=== PATIENT | female | born 1960 | race Caucasian/White ===

== ENCOUNTER 2016-04-21 08:33 | Observation (INO) | payer OTHER ==
[2016-04-10 13:54] LABS: HEMATOCRIT 38.8 % (36.0-48.0); HEMOGLOBIN 13.3 g/dL (12.0-16.0)
[2016-04-10 14:08] LABS: BUN (BLOOD UREA NITROGEN) 10 MG/DL (6-23); CALCIUM, SERUM 8.9 MG/DL (8.5-10.4); CHLORIDE, SERUM 103 MMOL/L (96-112); CO2 (CARBON DIOXIDE) 30 MMOL/L (24-34); CREATININE 0.63 MG/DL (0.55-1.02); GFR AFRICAN AMERICAN 115 ML/MIN (>=60); GFR NON AFRICAN AMERICAN 100 ML/MIN (>=60); GLUCOSE, SERUM 83 MG/DL (60-99); SODIUM, SERUM 143 MMOL/L (135-148)
--- NOTE | ~2016-04-21 | OP ---
Record Of Operation [facility] [address] [place]. [address] NAME: GORDO MATHIS : 56 STATUS : ADM Alex PAT#: [id number] AGE: 55 ADM/REG DATE : 04/21/16 MR#: [id number] REPORT SERV DATE: 04/21/16 DICTATED BY: RAVINDRA HAINES DATE: 04/21/16 REPORT STATUS : Draft TRANSCRIBED BY: MODMed DATE: 04/21/16 DATE OF PROCEDURE: 04/21/2016 PREOPERATIVE DIAGNOSIS: Cervical radiculopathy, C5-C7 disk disease and stenosis. POSTOPERATIVE DIAGNOSIS: Cervical radiculopathy, C5-C7 disk disease and stenosis. PROCEDURE: Anterior cervical diskectomy and fusion, C5-6, C6-7. Placement of Medtronic PEEK interbody spacer, C5-6, C6-7. Anterior cervical plate from Medtronic, C5-C7. Allograft bone matrix. Neuromonitoring. Operative microscope. SURGEON: Ravindra Haines DO. ANESTHESIA: General. ESTIMATED BLOOD LOSS: 20 mL. COMPLICATIONS: None. INDICATIONS: The patient is a 55-year-old with intractable neck and arm pain, upper extremity weakness, failed conservative treatment. After discussion of risks and benefits, elected to proceed with surgery. DESCRIPTION OF PROCEDURE: I identified the patient in the holding area. Consent was obtained. Went to the operating room. Underwent general anesthesia with endotracheal intubation. Prepped and draped in the usual sterile fashion. Operative safety pause was performed, and then we proceeded. An oblique incision was made over the left side of the neck, taken down through the platysma, dissection carried out down to the anterior aspect of the spine. Longus colli elevated. Self-retaining retractors were placed. Moapa pin was placed and lateral fluoroscopic image used to verify operative level. Moapa pins were placed at C6 and C7. Distraction applied. Operative microscope was brought in. A knife was used to perform an annulotomy. Free disk material removed with pituitary. Anterior osteophytes removed with Kerrison. Posterior osteophytes and uncinate processes taken down with a sonu bur. Foraminotomies performed with Kerrison. Endplates prepared with curettes, rasp, and a cutting bur. Trial spacers implanted, then Medtronic PEEK interbody spacer with allograft bone matrix placed at C6-C7. This was repeated again at the C5-C6 level. Moapa pins were removed. Anterior cervical plate from Medtronic placed at C5-C7. Screws were placed, final tightened. Locking mechanism engaged. Final AP and lateral images were obtained. Subplatysmal drain placed. Layered closure performed. Sterile dressings applied. The patient awoke and extubated, taken to recovery room in stable condition. OPERATIVE FINDING: C5-7 disk disease and stenosis. No sustained neuromonitoring alerts. Record Of Operation [address] [address] NAME: GORDO MATHIS : 56 STATUS : ADM Alex PAT#: [id number] AGE: 55 ADM/REG DATE : 04/21/16 MR#: [id number] REPORT SERV DATE: 04/21/16 DICTATED BY: RAVINDRA HAINES DATE: 04/21/16 REPORT STATUS : Draft TRANSCRIBED BY: CRUZ DATE: 04/21/16 MIKAL/CRUZ Ravindra Haines DO / [id number] CC: DO Araseli Sherwood M.D.
--- NOTE | ~2016-04-21 | PREOPHP ---
PreOp History and Physical [facility] [id number] [place]. [address] NAME: GORDO MATHIS : 56 STATUS : [facility] PAT#: [id number] AGE: 55 ADM/REG DATE : 04/21/16 MR#: [id number] REPORT SERV DATE: 04/21/16 DICTATED BY: RAVINDRA LAY DATE: 04/21/16 REPORT STATUS : Draft TRANSCRIBED BY: CRUZ DATE: 04/21/16 CHIEF COMPLAINT: Neck pain and left upper extremity pain and paresthesias. HISTORY OF PRESENT ILLNESS: The patient is a 55-year-old with intractable neck and left upper extremity pain with paresthesias, who has failed multiple attempts at conservative treatment. After discussion of risks and benefits, elected to proceed with surgical intervention. REVIEW OF SYSTEMS: She denied chest pain, shortness of breath, and bowel or bladder changes. ALLERGIES: TETRACYCLINE. HOME MEDICATIONS: Include Flexeril, lovastatin, metformin, tramadol, and Zoloft. FAMILY HISTORY: Noncontributory. PAST MEDICAL HISTORY: Includes migraines and high cholesterol. PHYSICAL EXAMINATION: VITAL SIGNS: Height 5 feet 5 inches, weight 175 pounds, BMI 29.1. GENERAL: The patient is healthy appearing, in no acute distress. PSYCH: Alert and oriented x3. Normal mood and affect. Gait within normal limits. SPINE: Decreased cervical motion. HEART: Regular rate and rhythm. LUNGS: Clear to auscultation. ABDOMEN: Soft, nontender, nondistended with good bowel sounds. BREASTS: Deferred. RECTAL: Deferred. NEUROLOGIC: Strength is 4-/5 for the left triceps, 4/5 for the left biceps and wrist extensors, and 5/5 diffusely for the remaining muscles of the upper extremities. IMAGING: I have reviewed the MRI scan of the cervical spine. The patient does have C5-C7 disk disease with stenosis. ASSESSMENT: C5-C7 disk disease and stenosis with cervical radiculopathy and left upper extremity weakness. PLAN: The patient presents today for surgical intervention. Consent was obtained. All questions were answered. She is ready to proceed with surgery. MIKAL/CRUZ Ravindra Lay DO PreOp History and Physical [address] [address] NAME: GORDO MATHIS : 56 STATUS : REG [facility] PAT#: [id number] AGE: 55 ADM/REG DATE : 04/21/16 MR#: [id number] REPORT SERV DATE: 04/21/16 DICTATED BY: RAVINDRA LAY DATE: 04/21/16 REPORT STATUS : Draft TRANSCRIBED BY: MONIQUEL DATE: 04/21/16 / [id number] CC: DO Araseli Sherwood M.D.
[~2016-04-21 08:33] MED LIST: CO Q-10100 MG PO; EXCEDRIN TENSI1 EACH PO; GLUCPH PO; HAIR PO; MEVACOR40 MG PO; MULTIPLE VIT PO; OS500+D PO; T PO; VIT PO; VITAMIN D31000 UNIT PO; VITE1000 PO; ZOL50 PO
[2016-04-22 04:36] LABS: POTASSIUM, SERUM 3.9 MMOL/L (3.5-5.3)
[2016-04-22] MEDS ORDERED: FLEX PO (11:32)
[2016-04-22] MEDS ORDERED: PCET PO (11:33)
== END 2016-04-22 13:14 | disposition home or self-care (01) ==
LOC: SDC 08:33 → SDC/OF 13:16 → 3SO 15:02
PROVIDERS: Orthopaedic Surgery
PROC: 0RG20A0 Fusion of 2 or more Cervical Vertebral Joints with Interbody Fusion Device, Anterior Approach, Anterior Column, Open Approach (ICD-10-PCS; principal; 2016-04-21 10:45)
DX: M48.02 Spinal stenosis, cervical region (principal); M54.12 Radiculopathy, cervical region; E88.81 Metabolic syndrome and other insulin resistance; G43.909 Migraine, unspecified, not intractable, without status migrainosus; G56.00 Carpal tunnel syndrome, unspecified upper limb; M65.30 Trigger finger, unspecified finger; Z88.1 Allergy status to other antibiotic agents; Z79.84 Long term (current) use of oral hypoglycemic drugs; Z90.710 Acquired absence of both cervix and uterus; Z90.49 Acquired absence of other specified parts of digestive tract; E78.5 Hyperlipidemia, unspecified; F41.9 Anxiety disorder, unspecified; F32.9 Major depressive disorder, single episode, unspecified; Z79.899 Other long term (current) drug therapy; Z98.890 Other specified postprocedural states
CPT/HCPCS: 76000; 80048; 80051; 82962; 85014; 85018; 87641; 88304; 88311; 93005; 96374; 96375; 96376; 97161-GP; A9270-GY; C1713; G0378; J0690; J1170; J2250; J2270; J2405; J2550; J2710; J3010